=== PATIENT | female | born 1970 | race Caucasian/White ===

== ENCOUNTER → 2025-08-21 | Outpatient (CLI) | payer MEDICARE, MEDICAID, SELFPAY ==
--- NOTE | 2025-08-21 14:20 | XR_ITS ---
Examination: Bone densitometry Date and time of exam:August 21, 2025, 1634 hours INDICATIONS: Hysterectomy age 13, levothyroxine 6 years, personal history osteoporosis Technique: Lumbar spine and hip total bone mineralization values of an calculated. Peak reference and age match control results have been displayed. Findings: Lumbar spine total bone mineralization is0.814 gm/cm2. This is 2.1 standard deviations below peak reference. This is 1.1 standard deviations below age-matched controls. Hip total bone mineralization is 0.783 gm/cm2 This is 1.3 standard deviations below peak reference. This is 0.7 standard deviations below age-matched controls Impression: There is osteopenia based on lumbar spine measurements. There is osteoporosis based on hip measurements Lumbar mineralization is decreased 0.3% compared with January 30, 2023 Hip mineralization is increase 0.7% compared with January 30, 2023
== END | disposition home or self-care (01) ==
PROVIDERS: Referring Provider Physician Assistant; Visit Provider Physician Assistant
DX: M85.88 Other specified disorders of bone density and structure, other site (principal); M81.0 Age-related osteoporosis without current pathological fracture
CPT/HCPCS: 77080